=== PATIENT | female | born 1990 | race Caucasian/White ===

== ENCOUNTER 2021-02-20 16:20 | Emergency (ER) | payer SELFPAY ==
[2021-02-20 16:30] VITALS: BP 117/78; PULSE 74; TEMP 98.4; BMI 23.8
[2021-02-20] MEDS ORDERED: FLUORESCEIN NA 1 EA STRIP OS ONE (16:44)
[2021-02-20] MEDS ORDERED: TETRACAINE 0.5% HCL 0.6ML DROPPER.BOTTLE OS ONE (16:44)
[2021-02-20] MEDS ORDERED: FLUORESCEIN NA 1 EA STRIP ONE (16:46)
[2021-02-20 17:39] LABS: EOS % 1.2 % (0-4.5); LYMPH % 29.3 % (8-40); MCH 32.3 pg (25.7-33.7); MCHC 34.3 g/dl (32.0-36.0); MEAN CELL VOLUME 94.1 fl (80-96); MEAN PLT VOLUME 7.5 fl (7.5-11.1); MONO % 9.8 % (3.8-10.2); NEUT % 58.7 % (42.8-82.8); PLATELET COUNT 357 K/MM3 (134-434); RBC 4.03 M/mm3 (3.60-5.2); RDW 12.2 % (11.6-15.6); WHITE BLOOD COUNT 6.3 K/mm3 (4.0-10.0)
[2021-02-20 17:58] LABS: CALCIUM 9.5 mg/dL (8.5-10.1)
[2021-02-20 17:59] LABS: ALBUMIN 4.2 g/dl (3.4-5.0); BLOOD UREA NITROGEN 11.7 mg/dL (7-18)
[2021-02-20 18:00] LABS: URIC ACID 4.3 mg/dL (2.6-7.2)
[2021-02-20 18:01] LABS: CREATININE 0.6 mg/dL (0.55-1.3); PHOSPHOROUS 3.3 mg/dL (2.5-4.9)
[2021-02-20 18:03] LABS: BILIRUBIN,TOTAL 0.3 mg/dL (0.2-1); TOT PROT 7.3 g/dl (6.4-8.2)
[2021-02-20 18:46] LABS: HIV INTERPRETATION NEGATIVE (NEGATIVE)
== END 2021-02-20 17:00 | disposition home or self-care (01) ==
LOC: JER 16:20
DX: Z77.21 Contact with and (suspected) exposure to potentially hazardous body fluids (principal)
CPT/HCPCS: 36415; 80053; 82465; 82977; 83615; 84100; 84478; 84550; 85025; 86317; 86704; 86706; 86803; 87340; 87389; 99283-25